=== PATIENT | male | born 1970 | race Hispanic/Latino ===

== ENCOUNTER 2019-08-01 08:08 | Outpatient (CLI) | payer OTHER ==
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
== END 2019-08-01 08:09 | disposition home or self-care (01) ==
LOC: CT 08:08
DX: M54.2 Cervicalgia (principal); R51 Headache; M47.812 Spondylosis without myelopathy or radiculopathy, cervical region; Z98.1 Arthrodesis status
CPT/HCPCS: 70450; 72125

== ENCOUNTER 2021-05-13 06:22 | Emergency (ER) | payer OTHER | END 2021-05-13 09:06 | disposition left against medical advice (07) | LOC: ERS 06:22 | DX: Z53.21 Procedure and treatment not carried out due to patient leaving prior to being seen by health care provider (principal) ==

== ENCOUNTER 2022-11-10 15:49 | Inpatient (IN) | payer BC, OTHER, SELFPAY ==
[2022-11-10 16:35] LABS: #Basophils 0.1 thou/uL (0.0-0.2); #Eosinphils 0.1 thou/uL (0.0-0.7); #Lymphocytes 2.6 thou/uL (1.20-3.40); #Monocytes 0.7 thou/uL (0.11-0.59); #Neutrophils 6.7 thou/uL (1.40-6.50); %Eosinophils 0.6 % (0.0-10.0); %Lymphocytes 25.4 % (21.0-51.0); %Monocytes 7.2 % (0.0-10.0); %Neutrophils 65.8 % (42.0-75.0); Hemoglobin 14.1 g/dL (14.0-18.0); Mean Corpuscular HGB CONC 34.7 g/dL (32.0-36.0); Mean Corpuscular Hemoglobin 29.9 pg (27.0-31.0); Mean Corpuscular Volume 86.2 fl (78.0-98.0); Mean Platelet Volume 7.7 fL (7.4-10.4); Platelet Count 266 10x3/uL (130-400); RBC Distribution Width 11.8 % (11.5-14.5); Red Blood Cell (RBC) Count 4.71 mill/uL (4.70-6.10); White Blood Cell (WBC) Count 10.1 10x3/uL (4.8-10.8)
[2022-11-10 16:46] LABS: INR-International Normal Ratio 1.1; PTT 29.6 sec (22.9-36.1); Prothrombin Time 14.7 sec (12.0-14.7)
[2022-11-10 16:51] LABS: Bilirubin Negative (Negative); Blood, Urine Negative (Negative); Clarity Clear (Clear); Glucose, Urine (Dipstick) Normal (Negative); Ketone, Urine Negative (Negative); Leukocyte Negative Leu/uL (Negative); Nitrite Negative (Negative); Protein, Urine (Dipstick) Negative (Neg-Trace); Specific Gravity, Urine 1.021 (1.002-1.036); Urobilinogen Normal mg/dL (Less than 2); pH, Urine 6.5 (5.0-9.0)
[2022-11-10 17:00] LABS: ALT (SGPT) 15 U/L (8-55); AST (SGOT) 15 U/L (5-34); Alkaline Phosphatase 64 U/L (40-110); Anion Gap 10 mmol/L (10-20); BUN (Urea Nitrogen) 12 mg/dL (8.9-20.6); Bilirubin, Total 0.6 mg/dL (0.2-1.2); Calc. Creatinine Clearance 0 mL/min (70-130); Calcium 8.9 mg/dL (7.8-10.44); Carbon Dioxide 26 mmol/L (22-29); Chloride 101 mmol/L (98-107); Estimated GFR 93; Globulin 2.6 g/dL (2.4-3.5); Glucose 97 mg/dL (70-105); Potassium 2.7 mmol/L (3.5-5.1); Protein, Total 6.6 g/dL (6.0-8.3); Sodium 134 mmol/L (136-145)
[2022-11-10] MEDS ORDERED: Potassium Chloride 20 MEQ/100 ML PREMIX BAG ONE (17:17)
[2022-11-10] MEDS ORDERED: Potassium Chloride 20 MEQ TAB ONE (17:17)
[2022-11-10] MEDS ORDERED: Iopamidol-370 76% 500 ML 1 ML ONE (17:26)
[2022-11-10] MEDS ORDERED: Potassium Chloride 20 MEQ TAB PO SCH (17:45)
[2022-11-10 18:56] VITALS: BMI 26.6
[2022-11-10 21:24] LABS: Anion Gap 12 mmol/L (10-20); BUN (Urea Nitrogen) 12 mg/dL (8.9-20.6); Calc. Creatinine Clearance 78 mL/min (70-130); Calcium 9.1 mg/dL (7.8-10.44); Carbon Dioxide 26 mmol/L (22-29); Chloride 101 mmol/L (98-107); Estimated GFR 73; Glucose 127 mg/dL (70-105); Potassium 3.2 mmol/L (3.5-5.1); Sodium 136 mmol/L (136-145); Troponin I Less than 0.010 ng/mL (< 0.028)
[2022-11-10] MEDS: Apixaban 5 MG TAB PO SCH (22:11)
[2022-11-10] MEDS: Rosuvastatin 20 MG TAB PO SCH (22:11)
[2022-11-10 23:02] LABS: Troponin I Less than 0.010 ng/mL (< 0.028)
[2022-11-11 05:27] LABS: #Basophils 0.1 thou/uL (0.0-0.2); #Eosinphils 0.2 thou/uL (0.0-0.7); #Lymphocytes 2.7 thou/uL (1.20-3.40); #Monocytes 0.9 thou/uL (0.11-0.59); #Neutrophils 5.9 thou/uL (1.40-6.50); %Basophils 0.8 % (0.0-1.0); %Eosinophils 1.7 % (0.0-10.0); %Lymphocytes 27.8 % (21.0-51.0); %Neutrophils 60.7 % (42.0-75.0); Hemoglobin 14.5 g/dL (14.0-18.0); Mean Corpuscular HGB CONC 34.6 g/dL (32.0-36.0); Mean Corpuscular Volume 86.8 fl (78.0-98.0); Mean Platelet Volume 8.2 fL (7.4-10.4); Platelet Count 234 10x3/uL (130-400); RBC Distribution Width 11.7 % (11.5-14.5); Red Blood Cell (RBC) Count 4.83 mill/uL (4.70-6.10); White Blood Cell (WBC) Count 9.8 10x3/uL (4.8-10.8)
[2022-11-11 05:51] LABS: Anion Gap 13 mmol/L (10-20); BUN (Urea Nitrogen) 14 mg/dL (8.9-20.6); Calc. Creatinine Clearance 95 mL/min (70-130); Calcium 8.7 mg/dL (7.8-10.44); Carbon Dioxide 22 mmol/L (22-29); Chloride 105 mmol/L (98-107); Estimated GFR 93; Glucose 106 mg/dL (70-105); Potassium 3.5 mmol/L (3.5-5.1); Sodium 136 mmol/L (136-145)
[2022-11-11] MEDS: Apixaban 5 MG TAB PO SCH ×2 (10:23→20:11)
[2022-11-11] MEDS: Losartan 25 MG TAB PO SCH (10:23)
[2022-11-11] MEDS: Rosuvastatin 20 MG TAB PO SCH (20:11)
[2022-11-11] MEDS: Melatonin 3 MG TAB PO PRN (20:12)
[2022-11-12 05:34] LABS: #Basophils 0.1 thou/uL (0.0-0.2); #Eosinphils 0.1 thou/uL (0.0-0.7); #Lymphocytes 2.5 thou/uL (1.20-3.40); #Monocytes 0.7 thou/uL (0.11-0.59); #Neutrophils 5.9 thou/uL (1.40-6.50); %Eosinophils 1.4 % (0.0-10.0); %Lymphocytes 27.1 % (21.0-51.0); %Monocytes 7.6 % (0.0-10.0); %Neutrophils 62.9 % (42.0-75.0); Hemoglobin 14.3 g/dL (14.0-18.0); Mean Corpuscular HGB CONC 34.7 g/dL (32.0-36.0); Mean Corpuscular Hemoglobin 30.2 pg (27.0-31.0); Mean Platelet Volume 8.2 fL (7.4-10.4); Platelet Count 220 10x3/uL (130-400); RBC Distribution Width 11.6 % (11.5-14.5); Red Blood Cell (RBC) Count 4.73 mill/uL (4.70-6.10); White Blood Cell (WBC) Count 9.4 10x3/uL (4.8-10.8)
[2022-11-12 06:07] LABS: Anion Gap 10 mmol/L (10-20); BUN (Urea Nitrogen) 15 mg/dL (8.9-20.6); Calc. Creatinine Clearance 84 mL/min (70-130); Calcium 8.7 mg/dL (7.8-10.44); Carbon Dioxide 22 mmol/L (22-29); Chloride 106 mmol/L (98-107); Estimated GFR 81; Glucose 122 mg/dL (70-105); Potassium 3.3 mmol/L (3.5-5.1); Sodium 135 mmol/L (136-145)
[2022-11-12] MEDS ORDERED: Electrolyte Replacement Protocol 1 EACH FS SCH (07:53)
[2022-11-12] MEDS ORDERED: Potassium Chloride 20 MEQ TAB PO SCH (08:15)
[2022-11-12] MEDS: Aspirin 81 mg Enteric Coated Tablet PO SCH (09:14)
[2022-11-12] MEDS: Apixaban 5 MG TAB PO SCH ×2 (09:15→21:24)
[2022-11-12] MEDS: Losartan 25 MG TAB PO SCH (09:15)
[2022-11-12] MEDS ORDERED: Sodium Chloride 0.9% 500 ML IV SCH (14:15)
[2022-11-12] MEDS: Rosuvastatin 20 MG TAB PO SCH (21:24)
[2022-11-12] MEDS: Melatonin 3 MG TAB PO PRN (21:34)
[2022-11-13] MEDS: Aspirin 81 mg Enteric Coated Tablet PO SCH (10:39)
[2022-11-13] MEDS: Apixaban 5 MG TAB PO SCH (10:39)
[2022-11-13 12:34] VITALS: BP 127/89; TEMP 97.9
== END 2022-11-13 12:46 | disposition home or self-care (01) | DRG 66 ==
LOC: ERS 15:49 → SUATTDRO 15:49 → NEURO 18:36 → OBSVTOIN 11-11 11:48
PROVIDERS: ADMIT Family Medicine; ATTEND Internal Medicine
DX: I63.9 Cerebral infarction, unspecified (principal); Z20.822 Contact with and (suspected) exposure to COVID-19; R47.01 Aphasia; E78.5 Hyperlipidemia, unspecified; I10 Essential (primary) hypertension; F17.210 Nicotine dependence, cigarettes, uncomplicated; R29.700 NIHSS score 0; E87.6 Hypokalemia; R20.0 Anesthesia of skin; I48.0 Paroxysmal atrial fibrillation; Z90.49 Acquired absence of other specified parts of digestive tract; Z79.01 Long term (current) use of anticoagulants; Z79.899 Other long term (current) drug therapy; Z88.8 Allergy status to other drugs, medicaments and biological substances
CPT/HCPCS: 36415; 70450; 70496; 70498; 70551; 71045; 80048; 80053; 80061; 81003; 83735; 84443; 84484; 85025; 93005; 93010; 94760; 96374; G0378; J3480; J7030; Q9967; U0003; U0005